=== PATIENT | female | born 1955 | race Caucasian/White ===

== ENCOUNTER 2019-10-17 14:57 | Inpatient (IN) | payer MEDICARE, BC ==
[~2019-10-17] VITALS: Ht 157.5 cm; Wt 90.7 kg
--- NOTE | 2019-10-17 21:30 | NUR ---
RECEIVED REPORT FROM REJI DENISE FROM [facility] FOR CONTINUITY OF CARE. AWAITING PATIENT ARRIVAL.
--- NOTE | 2019-10-17 22:30 | NUR ---
PATIENT ARRIVED VIA EMS ON GURNEY AND WAS TRANSFERRED TO BED. PATIENT A/O X 3 AND ABLE TO MAKE NEEDS KNOWN. FAMILY AT BEDSIDE. O2 PLACED AT 2LPM AND TOLERATING WELL. TELEMETRY PLACED WITH SR-ST WITH BBB ON THE MONITOR. PATIENT NOT CURRENTLY C/O ANY CHEST PAIN, BUT C/O SOB WHEN LYING FLAT. BED IN LOW LOCK POSITION WITH RIALS UP X 2. CALL LIGHT WITHIN REACH AND ALL SAFETY MEASURES ENSURED AND CARRIED OUT. WILL CONTINUE TO MONITOR PATIENT.
--- NOTE | 2019-10-17 23:15 | NUR ---
CROWLEY CATHETER PLACED WITH YELLOW URINE DRAINING. WILL CONTINUE TO MONITOR.
[2019-10-17 23:30] VITALS: BP 86/73
[2019-10-17] MEDS ORDERED: ONDANSETRON HCL/PF 4 MG/2 ML VIAL IVP PRN (23:30)
[2019-10-17] MEDS ORDERED: ACETAMINOPHEN 325 MG TABLET PO PRN (23:30)
[2019-10-17] MEDS ORDERED: Z GUARD REMEDY 2 OZ OINT TP PRN (23:30)
[2019-10-18] VITALS (14 sets, daily range): BP systolic 90–139; BP diastolic 44–70
[2019-10-18] MEDS ORDERED: DEXTROSE 50%-WATER 50 ML DISP.SYRIN IV PRN (00:30)
[2019-10-18 00:57] LABS: APPEARANCE,URINE CLEAR (CLEAR); COLOR,URINE YELLOW (YELLOW); KETONES,URINE TRACE (NEGATIVE)
[2019-10-18 00:58] LABS: BILIRUBIN,URINE NEGATIVE (NEGATIVE); BLOOD, URINE NEGATIVE Ery/uL (NEGATIVE); LEUKOCYTE ESTERASE ,URINE NEGATIVE (NEGATIVE); NITRITE, URINE NEGATIVE (NEGATIVE); PROTEIN,URINE NEGATIVE (NEGATIVE); UGLUCOSE NEGATIVE (NEGATIVE); UROBILINOGEN,URINE 0.2 EU/dL (0.2)
[2019-10-18 01:03] LABS: BACTERIA,URINE Few /HPF (None Seen); SQUAMOUS EPITHELIAL CELL,UR Few /HPF (None Seen); WBC,URINE 0-2 /HPF (0-3)
[2019-10-18 04:53] LABS: BASOPHILS % (AUTO) 0.2 % (0.0-2.0); HEMATOCRIT 32 % (33-45); HEMOGLOBIN 10.6 g/dL (11.5-14.8); LYMPHOCYTES # (AUTO) 0.9 /CMM (0.8-4.8); LYMPHOCYTES % (AUTO) 7.8 % (20.0-44.0); MEAN CORPUSCULAR HGB CONC 33 g/dl (31.0-36.0); MEAN CORPUSCULAR VOLUME 84 fL (82-100); MONOCYTES # (AUTO) 1.1 /CMM (0.1-1.30); MONOCYTES % (AUTO) 9.5 % (2.0-12.0); NEUTROPHILS # (AUTO) 9.5 /CMM (1.8-8.9); NEUTROPHILS % (AUTO) 82.5 % (43.0-81.0); PLATELET COUNT (AUTO) 362 /CMM (150-450); RED BLOOD CELL COUNT(AUTO) 3.86 MIL/uL (4.0-5.2); WHITE BLOOD COUNT (AUTO) 11.6 K/uL (4.3-11.0)
--- NOTE | 2019-10-18 05:00 | NUR ---
RECEIVED A CALL FROM MORA DENISE MANAGER OF STRAIGHT EDGER AND REQUESTED CREATININE VALUE IN WHICH 2.5 (H) WAS GIVEN AND WAS TOLD THAT DR. DUNLAP WILL POSTPONE THE PROCEDURE UNTIL TOMORROW TO TRY AND GET BETTER KIDNEY FUNCTION. WILL NOTIFY PATIENT AND ENDORSE TO DAY SHIFT RN.
--- NOTE | 2019-10-18 05:00 | NUR ---
SECOND IV PLACED ON RIGHT HAND 20G WITH GOOD BLOOD RETURN AND FLUSHES WELL. PATIENT TOLERATED WELL.
[2019-10-18 05:30] LABS: ALBUMIN 3.1 g/dL (3.4-5.0); BILIRUBIN,TOTAL 0.4 mg/dL (0.2-1.0); CALCIUM, SERUM 9.2 mg/dL (8.5-10.1); CREATININE 2.5 mg/dL (0.6-1.3); MAGNESIUM 2.6 mg/dL (1.8-2.4); PHOSPHORUS 4.6 mg/dL (2.5-4.9)
[2019-10-18] MEDS: BLOOD SUGAR DIAGNOSTIC 1 EACH STRIP IN SCH ×3 (06:36→17:25)
--- NOTE | 2019-10-18 06:43 | NUR ---
PATIENT REMAINS IN NO ACUTE DISTRESS IN BED. ALL NEEDS MET, ALL ORDERS CARRIED OUT. WILL ENDORSE CARE TO AM RN FOR CONTINUITY OF CARE.
[2019-10-18] MEDS ORDERED: EMPA10TA PO (07:47)
[2019-10-18] MEDS ORDERED: ESCI10TA PO (07:47)
[2019-10-18] MEDS ORDERED: AZIT250T13 PO (07:47)
[2019-10-18] MEDS ORDERED: METO50TA16 PO (07:47)
[2019-10-18] MEDS ORDERED: ASPI-1169 PO (07:47)
[2019-10-18] MEDS ORDERED: LOSA50TA39 PO (07:47)
[2019-10-18] MEDS ORDERED: PREG50CA PO (07:47)
[2019-10-18] MEDS ORDERED: GABA-532 PO (07:47)
[2019-10-18] MEDS ORDERED: DOCU100C36 PO (07:47)
[2019-10-18] MEDS ORDERED: FENO134C PO (07:47)
[2019-10-18] MEDS ORDERED: SIMV-49 PO (07:47)
[2019-10-18] MEDS ORDERED: GLIM4TAB37 PO (07:47)
[2019-10-18] MEDS ORDERED: ERGO500014 PO (07:47)
--- NOTE | 2019-10-18 07:57 | NUR ---
RN NOTE: Informed Dr. Schrader regarding the patient's postponed cardiac cath procedure for today due to the abnormal kidney function. Patient denied any chest pain or discomfort. Dr. Schrader ordered a cardiac CCHO diet. Noted and carried out. Patient and her family at the bedside made aware.
--- NOTE | 2019-10-18 08:30 | NUR ---
RN NOTE: Patient was transported to [facility] via ACLS protocol and son Barrie was made aware about the unit transfer. Patient was awake, alert and verbally responsive upon transfer. 2 family members were at the bedside during transfer and all belongings were released with the patient during transfer.
[2019-10-18] MEDS ORDERED: Medication Not On Formulary EA (Empagliflozin (Jardiance) 10 MG) PO SCH (09:00)
[2019-10-18] MEDS ORDERED: METOPROLOL TARTRATE 50 MG TABLET PO SCH (09:00)
[2019-10-18] MEDS ORDERED: AZITHROMYCIN 250 MG TABLET PO SCH (09:00)
[2019-10-18] MEDS ORDERED: GABAPENTIN 100 MG CAPSULE PO SCH (09:00)
[2019-10-18] MEDS ORDERED: ESCITALOPRAM OXALATE (10 MG) 10 MG TABLET PO SCH (09:00)
[2019-10-18] MEDS ORDERED: ENOXAPARIN SODIUM 30 MG/0.3 ML DISP.SYRIN SQ SCH (09:00)
[2019-10-18] MEDS ORDERED: ATORVASTATIN 10 MG TABLET PO SCH (09:00)
--- NOTE | 2019-10-18 09:00 | NUR ---
ACADEMIC ADMINISTRATOR NOTES RECEIVED PT FROM ICU VIA WHEELCHAIR AT 0840AM. PT A/O X4 ROMANIAN SPEAKING AND CAN UNDERSTAND AND SPEAK [place]. PT AMBULATORY. PT ON SUPPLEMENTARY OXYGEN AT 2LPM VIA NC, WITH NO ACUTE RESPIRATORY DISTRESS NOTED. PT WAS SEEN BY CARDIOLGISTS/ DR TOBIN IN THE ICU THIS MORNING AND DR SIMMONS ON THIS FLOOR. PT PLACED ON TELEMONITORING, SR 78 WITH BBB. PT DENIES ANY PAIN OR DISCOMFORT AT THIS TIME. PIVS TORAC G20 SL AND RIGHT HAND G20 SL, BOTH FLUSHED WITH NS, INTACT AND OPERATIONAL. PT KEPT COMFORTABLE IN BED. PT'S BED IN LOWEST, LOCKED POSITION WITH SR X3. CALL LIGHT KEPT WITHIN REACH. WILL CONTINUE PLAN OF CARE.
--- NOTE | 2019-10-18 09:07 | NUR ---
LINING VAMPER NOTES RECEIVED PT WITH FC IN PLACE, WITH CLEAR YELLOW URINE. WILL CONTINUE TO MONITOR.
[2019-10-18] MEDS: DOCUSATE SODIUM 100 MG CAPSULE PO SCH ×2 (09:28→16:41)
[2019-10-18] MEDS: GLIMEPIRIDE 4 MG TABLET PO SCH ×2 (09:29→16:41)
[2019-10-18] MEDS: PREGABALIN 25 MG CAPSULE PO SCH ×3 (09:29→16:42)
[2019-10-18] MEDS: FENOFIBRATE NANOCRYS (145 MG) 145 MG TABLET PO SCH ×2 (09:30→09:39)
[2019-10-18] MEDS: INSULIN REGULAR, HUMAN 100 UNIT/ML 3 ML VIAL SQ PRN ×2 (12:32→17:26)
[2019-10-18] MEDS ORDERED: ASPIRIN 81 MG TAB.CHEW PO SCH (13:30)
--- NOTE | 2019-10-18 14:00 | NUR ---
SENSOR SPECIALIST NOTES CALLED DAUGHTER/RUIZ REGARDING JARDIANCE MEDICATION. PER DAUGHTER WILL DROP IT OFF TONIGHT. WILL ENDORSE TO INCOMING NIGHT NURSE.
[2019-10-18 14:50] LABS: CALCIUM, SERUM 8.7 mg/dL (8.5-10.1); POTASSIUM 3.5 mmol/L (3.5-5.1)
--- NOTE | 2019-10-18 17:40 | NUR ---
OXYGEN TANK FILLER NOTES SEEN AND EVALUATED BY DR SIMMONS AGAIN AND WITH ORDERS PLACED AND CARRIED OUT. WILL CONTINUE TO MONITOR PT.
[2019-10-18] MEDS: IV NS 0.9% 500 ML IV ONE ×2 (17:58→18:26)
--- NOTE | 2019-10-18 18:10 | NUR ---
TEXTILE MACHINERY INSTRUCTOR NOTES CALLED TO LAB REGARDING TIMED BMP AND TROPONIN TONIGHT AT 10PM. DR SIMMONS WANTS TO BE NOTIFIED RIGHT AWAY WITH THE RESULT. WILL ENDORSE TO INCOMING NIGHT NURSE WELL.
--- NOTE | 2019-10-18 18:15 | NUR ---
ETL APPLICATION DEVELOPER NOTES NON ADMINISTERED FIRST ORDER OF BOLUS NS 500ML. ORDER CLARIFIED TO NS 500ML; FLUID TO RUN FOR X5 HOURS. WILL DELIVER AT 100ML/HR. WILL CONTINUE TO MONITOR PT. TO NOTIFY DR SIMMONS FOR SOB, CP. WILL ENDORSE TO INCOMING NIGHT NURSE FOR JOSHUA.
[2019-10-18] MEDS ORDERED: IV NS 0.9% 500 ML IV ONE (18:30)
--- NOTE | 2019-10-18 18:30 | NUR ---
LICENSED BONDSMAN NOTES JARDIANCE MEDICINE BROUGHT TO PHARMACY.
--- NOTE | 2019-10-18 19:03 | NUR ---
REAL ESTATE TEACHER CLOSING NOTES PT REMAINS IN BED, ASLEEP, EASILY AROUSED. PT A/O X4 [place] SPEAKING AND CAN UNDERSTAND AND SPEAK [place]. PT AMBULATORY WITH ASSIST. PT ON SUPPLEMENTARY OXYGEN AT 2LPM VIA NC, WITH NO ACUTE RESPIRATORY DISTRESS NOTED. ON TELEMONITORING, SR 90 WITH BBB. PT DENIES ANY PAIN OR DISCOMFORT AT THIS TIME. PIVS TO RAC G20 SL AND RIGHT HAND G20 SL, BOTH FLUSHED WITH NS, INTACT AND OPERATIONAL. ON GOING NS AT 100ML/HR [id number] RUNNING TO RIGHT HAND, INTACT AND FLUID INFUSING WELL. TIMED LABS BMP AND TROPONIN AT 10 PM RESULT TO NOTIFY DR SIMMONS. FC IN PLACE WITH YELLOW URINE, TOTAL OUTPUT OF 320ML. PT KEPT COMFORTABLE IN BED. ALL NEEDS AND CARE ATTENDED AND PROVIDED. PT'S BED IN LOWEST, LOCKED POSITION WITH SR X3. CALL LIGHT KEPT WITHIN REACH. WILL ENDORSE TO INCOMING NIGHT NURSE FOR JOSHUA.
[2019-10-18 22:28] LABS: CALCIUM, SERUM 8.5 mg/dL (8.5-10.1); CREATININE 2.9 mg/dL (0.6-1.3); POTASSIUM 3.5 mmol/L (3.5-5.1)
[2019-10-18] MEDS ORDERED: HEPARIN INFUSION/D5W 500 ML IV PRN (23:30)
[2019-10-19] VITALS: BP_SYST 104; BP_SYST 106; BP_DIAS 58
[2019-10-19] MEDS ORDERED: HEPARIN SODIUM, PORCINE 5000 UNITS/1 ML VIAL IV ONE
[2019-10-19] MEDS: BLOOD SUGAR DIAGNOSTIC 1 EACH STRIP IN SCH ×2 (00:29→05:43)
[2019-10-19 03:35] LABS: BASOPHILS % (AUTO) 0.2 % (0.0-2.0); EOSINOPHILS % (AUTO) 1.1 % (0.0-6.0); HEMATOCRIT 29 % (33-45); HEMOGLOBIN 9.5 g/dL (11.5-14.8); LYMPHOCYTES # (AUTO) 1.1 /CMM (0.8-4.8); LYMPHOCYTES % (AUTO) 17.3 % (20.0-44.0); MEAN CORPUSCULAR HGB CONC 33 g/dl (31.0-36.0); MEAN CORPUSCULAR VOLUME 83 fL (82-100); MONOCYTES # (AUTO) 0.6 /CMM (0.1-1.30); MONOCYTES % (AUTO) 9.5 % (2.0-12.0); NEUTROPHILS # (AUTO) 4.6 /CMM (1.8-8.9); NEUTROPHILS % (AUTO) 71.9 % (43.0-81.0); PLATELET COUNT (AUTO) 288 /CMM (150-450); RED BLOOD CELL COUNT(AUTO) 3.48 MIL/uL (4.0-5.2); WHITE BLOOD COUNT (AUTO) 6.4 K/uL (4.3-11.0)
[2019-10-19 03:57] LABS: ALBUMIN 2.4 g/dL (3.4-5.0); BILIRUBIN,TOTAL 0.3 mg/dL (0.2-1.0); CALCIUM, SERUM 8.1 mg/dL (8.5-10.1); CREATININE 2.7 mg/dL (0.6-1.3); MAGNESIUM 2.4 mg/dL (1.8-2.4); PHOSPHORUS 5.4 mg/dL (2.5-4.9); POTASSIUM 3.9 mmol/L (3.5-5.1); TOTAL PROTEIN, SERUM 6.8 g/dL (6.4-8.2)
[2019-10-19 04:00] VITALS: BP 96/58
--- NOTE | 2019-10-19 06:06 | NUR ---
SUEDING MACHINE OPERATOR NOTES AWAKE & RESPONSIVE. NOT IN ANY DISTRESS. NO SOB NOTED. DENIES ANY CHEST PAIN OR DISCOMFORT AT THIS TIME. ON TELE ST @ 104 WITH BBB WITH IV-HL PATENT & INTACT. KEPT ON NPO P MN. MONITORED ACCORDINGLY. CALL LIGHT WITHIN REACH. BED IN LOWEST POSITION. SR UP X 2 FOR SAFETY. WILL ENDORSE TO NEXT SHIFT.
[2019-10-19] MEDS ORDERED: VERAPAMIL HCL IV 5 MG/2 ML VIAL ONE (06:19)
[2019-10-19] MEDS ORDERED: NITROGLYCERIN ICAR 1,000 MCG/10 ML VIAL ICAR ONE (06:19)
[2019-10-19] MEDS ORDERED: HEPARIN SODIUM, PORCINE 1,000 UNIT/ML VIAL ONE (06:19)
[2019-10-19] MEDS ORDERED: LIDOCAINE 2% 50 ML MDV IJ ONE (06:19)
[2019-10-19] MEDS ORDERED: IODIXANOL 150 ML IV ONE (06:21)
[2019-10-19] MEDS ORDERED: IV NS 0.9% 1,000 ML ONE (06:29)
[2019-10-19] MEDS ORDERED: IV SET PRIMARY PUMP SET 1 EA INFUS.SET MC ONE (06:29)
[2019-10-19] MEDS ORDERED: FENTANYL PF 100MCG/2ML AMPUL ONE (06:41)
[2019-10-19] MEDS ORDERED: MIDAZOLAM HCL 2 MG/2ML VIAL ONE (06:42)
--- NOTE | 2019-10-19 07:30 | NUR ---
MOLD HOISTER NOTES RECEIVED REPORT FROM NIGHT NURSE. PATIENT IS CURRENTLY IN [employer].
[2019-10-19] MEDS ORDERED: ATORVASTATIN 10 MG TABLET PO SCH (09:00)
--- NOTE | 2019-10-19 10:04 | NUR ---
CALL RECEIVED FROM VIDEO PHOTOGRAPHER STATING PATIENT WILL BE TRANSFERRED TO HIGHER LEVEL OF CARE FROM VIDEO PHOTOGRAPHER DUE TO PATIENT NEEDING HEART SURGERY.
--- NOTE | 2019-10-19 10:23 | NUR ---
RN NOTES PER COMPUTER METHODS ANALYST, RN PATIENT WAS TRANSFERRED TO [facility] FROM COMPUTER METHODS ANALYST. PATIENT REMOVED FROM THE SYSTEM ALL PAPERS WERE PREPARED BY COMPUTER METHODS ANALYST NURSE.
[2019-10-19] MEDS ORDERED: IV LR 1000 ML 1,000 ML IV ONE (12:30)
== END 2019-10-19 10:23 | disposition short-term general hospital (02) | DRG 270 ==
LOC: MED 22:15 → ICU 22:54 → TELE 10-18 08:32 → MED 10-19 08:23
PROVIDERS: ADMIT Hospitalist
PROC: 4A023N7 Measurement of Cardiac Sampling and Pressure, Left Heart, Percutaneous Approach (ICD-10-PCS; principal; 2019-10-19)
PROC: 5A02210 Assistance with Cardiac Output using Balloon Pump, Continuous (ICD-10-PCS; 2019-10-19)
PROC: B211YZZ Fluoroscopy of Multiple Coronary Arteries using Other Contrast (ICD-10-PCS; 2019-10-19)
DX: I21.4 Non-ST elevation (NSTEMI) myocardial infarction (principal); I50.21 Acute systolic (congestive) heart failure; N17.0 Acute kidney failure with tubular necrosis; I13.0 Hypertensive heart and chronic kidney disease with heart failure and stage 1 through stage 4 chronic kidney disease, or unspecified chronic kidney disease; E11.65 Type 2 diabetes mellitus with hyperglycemia; E11.22 Type 2 diabetes mellitus with diabetic chronic kidney disease; G47.33 Obstructive sleep apnea (adult) (pediatric); I25.5 Ischemic cardiomyopathy; I44.7 Left bundle-branch block, unspecified; Z79.4 Long term (current) use of insulin; Z85.43 Personal history of malignant neoplasm of ovary; N18.9 Chronic kidney disease, unspecified; Z90.721 Acquired absence of ovaries, unilateral; Z92.21 Personal history of antineoplastic chemotherapy; Z68.36 Body mass index [BMI] 36.0-36.9, adult; E66.01 Morbid (severe) obesity due to excess calories; Z79.84 Long term (current) use of oral hypoglycemic drugs; E78.5 Hyperlipidemia, unspecified; I27.20 Pulmonary hypertension, unspecified
CPT/HCPCS: 33967; 36415; 71045-TC; 80048-TC; 80053-TC; 80061-TC; 81000-TC; 82962-TC; 83735-TC; 83880; 84100-TC; 84484-TC; 85025-TC; 85610-TC; 85730-TC; 86850-TC; 87081-TC; 93307-TC; 94799-TC; A4217; C1887; C1894; G0378; G0500; J1644; J1650; J1815; J2250; J3010; J3490; J7040; J7120; Q9967